=== PATIENT | female | born 1950 | race Caucasian/White ===

== ENCOUNTER → 2019-04-02 | Day surgery (SDC) | payer MEDICARE ==
[~2019-04-02] MED LIST: ACETAMINOPHEN325 M1 PO; AMLODIPINE-BEN1 EAC5 PO; CALCIUM PO; CITRACAL + D3 PO; FAMOTIDINE 20 MG/2 ML VIAL IV ONE; FENTANYL CITRATE/PF 100MCG/2 ML INJ ONE; FOLIC ACID PO; LIDOCAINE HCL 1% 2 ML AMP ONE; LIPITOR20 MG PO; LOTREL 5-20 MG1 EACH PO; METHOTREXATE2.5 MG PO; MIDAZOLAM HCL 2 MG/2 ML VIAL ONE; OR PHACO EYE KIT ONE; POVIDONE IODINE 5% (OPTH) 30 ML BTL ONE; PRAVASTATIN SOD20 MG PO; PREDNISONE5 MG PO; PREOP PHACO EYE KIT ONE; SIMPONI AR50 MG/4 ML IV; VITAMIN D35000 UNIT PO; VITAMIN E PO
--- OUTSIDE RECORDS SUMMARY | 2019-04-02 13:13 | XMS REPORT ---
Author Author [facility] Address Unknown Phone Unavailable Care Team Providers Care Cardiac Monitor Technician Name Role Phone Ruby MONTOYA Unavailable Unavailable Problems This patient has no known problems. Allergies, Adverse Reactions, Alerts This patient has no known allergies or adverse reactions. Medications This patient has no known medications. Encounters Start Date/Time End Date/Time Encounter Type Admission Type Attending [facility] [place] Facility Care Department Encounter ID 2018-11-15 15:28:00 2018-11-15 15:28:00 Outpatient [id number] Results Test Description Test Time Test Comments Text Results Atomic Results Result Comments CHEST 2 VIEWS [place] [address] Patient Name: DESMOND VELAZQUEZ I MR #: [id number] : 1950 Age/Sex: 67/F Req #: [id number] Adm Physician: Ordered by: ISREAL MONTOYA MD Report #: [id number] Location: OR Room/Bed: Procedure: [id number] DX/CHEST 2 VIEWS Exam Date: 03/01/17 Exam Time: 1245 REPORT STATUS: Signed PROCEDURE: Frontal and lateral views of the chest. COMPARISON: None. INDICATIONS: LARGE MASS RIGHT UPPER BACK FINDINGS: Lines/tubes: None. Lungs: The lungs are well inflated and clear. There is no evidence of pneumonia or pulmonary edema. Pleura: There is no pleural effusion or pneumothorax. Heart and mediastinum: The heart and the mediastinum are normal. Bones: No acute bony abnormality. Degenerative changes of the thoracic spine. IMPRESSION: No acute radiographic abnormality. Dictated by: Ashley Zuniga M.D. on 03/01/2017 at 13:21 Electronically approved by: Ashley Zuniga M.D. on 03/01/2017 at 13:21 Dictated By: ASHLEY ZUNIGA MD [id number] Transcribed By: HAMIDA on 03/01/17 1321 COPY TO: ISREAL MONTOYA MD
[2019-04-02 15:10] VITALS: BP 99/77
== END | disposition home or self-care (01) ==
LOC: OR 13:10
PROVIDERS: ATTEND Ophthalmology
DX: H25.12 Age-related nuclear cataract, left eye (principal); I10 Essential (primary) hypertension; E87.1 Hypo-osmolality and hyponatremia; M06.9 Rheumatoid arthritis, unspecified; I73.9 Peripheral vascular disease, unspecified; F32.9 Major depressive disorder, single episode, unspecified; F41.9 Anxiety disorder, unspecified; Z88.0 Allergy status to penicillin; Z88.2 Allergy status to sulfonamides; Z01.810 Encounter for preprocedural cardiovascular examination; Z87.891 Personal history of nicotine dependence
CPT/HCPCS: 66984; 93005; J2001; J2250; J3010; V2788

== ENCOUNTER → 2019-04-16 | Day surgery (SDC) | payer MEDICARE ==
[~2019-04-16] MED LIST changes: -FAMOTIDINE 20 MG/2 ML VIAL IV ONE; -LIDOCAINE HCL 1% 2 ML AMP ONE; -POVIDONE IODINE 5% (OPTH) 30 ML BTL ONE
[2019-04-16 13:05] VITALS: BP 97/57
== END | disposition home or self-care (01) ==
LOC: OR 09:33
PROVIDERS: ATTEND Ophthalmology
DX: H25.11 Age-related nuclear cataract, right eye (principal); I10 Essential (primary) hypertension; M06.9 Rheumatoid arthritis, unspecified; E87.1 Hypo-osmolality and hyponatremia; Z88.0 Allergy status to penicillin; Z88.2 Allergy status to sulfonamides; Z87.891 Personal history of nicotine dependence
CPT/HCPCS: 66984; J2250; J3010; V2788

== ENCOUNTER → 2021-09-06 | Outpatient (CLI) | payer MEDICARE ==
[~2021-09-06] MED LIST changes: -FENTANYL CITRATE/PF 100MCG/2 ML INJ ONE; -MIDAZOLAM HCL 2 MG/2 ML VIAL ONE; -OR PHACO EYE KIT ONE; -PREOP PHACO EYE KIT ONE; +SODIUM CHLORIDE 0.9% 500ML 0 ML ONE
[2021-09-06 11:51] LABS: CREATININE, SERUM 1.34 mg/dL (0.57-1.11)
== END ==
LOC: CT 08:38
PROVIDERS: ATTEND Internal Medicine
DX: R18.8 Other ascites (principal)
CPT/HCPCS: 36415; 74150; 82565; 84520; J7040

== ENCOUNTER → 2023-09-18 | Outpatient (REF) | payer MEDICARE ==
[~2023-09-18] MED LIST changes: -SODIUM CHLORIDE 0.9% 500ML 0 ML ONE
== END ==
LOC: MAMMO 09:43
PROVIDERS: ATTEND Internal Medicine
DX: Z12.31 Encounter for screening mammogram for malignant neoplasm of breast (principal)
CPT/HCPCS: 77067